=== PATIENT | female | born 1975 | race Caucasian/White ===

== ENCOUNTER 2020-11-25 04:22 | Outpatient (CLI) | payer OTHER, SELFPAY ==
[2020-11-25 13:02] LABS: Source Nasal/Nares
[2020-11-25 21:56] LABS: COVID-19 PCR Negative (Negative)
== END 2020-11-25 04:23 | disposition home or self-care (01) ==
LOC: LBO 04:22
PROVIDERS: Visit Provider Student in an Organized Health Care Education/Training Program
DX: Z20.822 Contact with and (suspected) exposure to COVID-19 (principal); Z01.818 Encounter for other preprocedural examination
CPT/HCPCS: 87635

== ENCOUNTER 2020-11-27 10:48 | Day surgery (SDC) | payer OTHER, SELFPAY ==
[2020-11-27] VITALS (9 sets, daily range): BP systolic 104–136; BP diastolic 55–86; PULSE 62–88; RESP 14–19; TEMP 36.1–36.7; O2SAT 96–99; BMI 38.9
--- NOTE | 2020-11-27 10:45 | DI.RAD_ITS ---
Exam(s) XR ANKLE RT 2V EXAM: XR ANKLE RT 2V CLINICAL HISTORY: RIGHT DISTAL FIBULAR FRACTURE. TECHNIQUE: 2D digital imaging was performed. COMPARISON: No exams were available for comparison FINDINGS: Fluoroscopy provided during orthopedic procedure. See appears submitted images reveal placement of a lateral fixation plate across fibular fracture site secured by a total of 6 screws. Satisfactory po sition alignment. Total fluoroscopy time 25 seconds. Cumulative dose 0.58mGy IMPRESSION: DATA REPOSITORY: RADIATION DOSE DELIVERED:
[2020-11-27] MEDS: Lactated Ringers 1,000 ML 80 ML IV (11:25)
[2020-11-27] MEDS: Acetaminophen 500 MG TAB 1000 MG PO (11:48)
[2020-11-27] MEDS: Celecoxib 200 MG CAP 400 MG PO (11:48)
[2020-11-27] MEDS: Gabapentin 300 MG CAP PO (11:49)
--- NOTE | 2020-11-27 12:12 | W.ANESPRE ---
General Info Date of Service Date Performed: 11/27/20 Height: 5 ft 7 in Weight: 113 kg Body Mass Index (BMI): 38.9 Surgical Procedure: Operation Date: 11/27/20 12:40 Proposed Procedures Side Surgeon p ORIF R Fibula, possible syndesmosis repair, possible deltoid ligament repair Right Derrek Burns MD Meds Allergies and Home Medications Allergies Allergy/AdvReac Type Severity Reaction Status Date / Time Sulfa (Sulfonamide Allergy rash head Verified 11/27/20 11:26 Antibiotics) to toe levofloxacin [From Levaquin] AdvReac vomiting Verified 11/27/20 11:26 Home Medication Medication Instructions Recorded adalimumab 40 mg/0.8 mL 40 mg SUBCUT ONCE 10/20/20 subcutaneous pen kit apixaban 2.5 mg tablet 2.5 mg PO BID 10/20/20 celecoxib 200 mg capsule 200 mg PO DAILY #30 cap 10/20/20 cholecalciferol (vitamin D3) 125 125 mcg PO DAILY 10/20/20 mcg (5,000 unit) capsule levothyroxine 50 mcg capsule 50 mcg PO DAILY 10/20/20 hydrocodone-acetaminophen 1 tab PO Q4H PRN 11/26/20 Knee Scooter #1 ea 11/27/20 cephalexin 500 mg PO Q6H PRN PRN 11/27/20 Current Visit Medications: Current Medications Generic Name Dose Route Start Last Admin Trade Name Freq PRN Reason Stop Dose Admin Acetaminophen 1,000 mg 11/27/20 06:00 11/27/20 11:48 Acetaminophen 500 Mg Tab PO 11/27/20 16:00 1,000 mg PREOP DOLORES Administration Celecoxib 400 mg 11/27/20 06:00 11/27/20 11:48 Celecoxib 200 Mg Cap PO 11/27/20 16:00 400 mg PREOP DOLORES Administration Ephedrine Sulfate 0 mg 11/27/20 10:27 Ephedrine 50 Mg/Ml Vial IVP DIRECTED PRN Fentanyl 0 mcg 11/27/20 10:27 Fentanyl 100 Mcg/2 Ml Vial IVP DIRECTED PRN Gabapentin 300 mg 11/27/20 06:00 11/27/20 11:49 Gabapentin 300 Mg Cap PO 11/27/20 16:00 300 mg PREOP DOLORES Administration Hydromorphone HCl 0 mg 11/27/20 10:27 Hydromorphone 2 Mg/Ml Vial IVP DIRECTED PRN Ringer's Solution 1,000 mls @ 80 mls/hr 11/27/20 06:00 IV 12/26/20 23:59 INFUSION DOLORES Cefazolin Sodium 2,000 mg/ 100 mls @ 200 mls/hr 11/27/20 06:00 Sodium Chloride IVPB 11/27/20 16:00 PREOP DOLORES IV Miscellaneous Supplies 1 each 11/27/20 06:00 Iv Access IV 12/26/20 23:59 DIRECTED DOLORES Naloxone HCl 0 mg 11/27/20 10:27 Naloxone 0.4 Mg/Ml Vial IVP PRN PRN Sodium Chloride 0 ml 11/27/20 06:00 Normal Saline Flush 10 Ml Syr IV 12/26/20 23:59 PRN PRN Sodium Chloride 0 ml 11/27/20 06:00 Normal Saline 10 Ml Vial IJ 12/26/20 23:59 DIRECTED PRN Sterile Water 0 ml 11/27/20 06:00 Water,Injection,Sterile 10 Ml Vial IJ 12/26/20 23:59 DIRECTED PRN PFSH Active Problems Active Problems: Problem Status Onset Code Osteoarthritis of left knee M17.12 Osteoarthritis of right knee M17.11 Trimalleolar fracture of right ankle S82.851A Medical History Medical History (Updated 11/27/20 @ 11:42 by Julia Mohan) Arthritis History of blood transfusion 2018-pt stated she was on a blood thinner from previous DVT and hemhorraged and recieved two transfusions History of postoperative nausea and vomiting Hx of deep venous thrombosis in 2018 2x 6 months apart Hx of pilonidal cyst Hx of psoriasis Hypothyroidism Open wound pt. see's vascular in regards to a wound that has been open from a punch biopsy for 2 years. Ulcerative colitis Surgical History Surgical History Hx of section Hx of hysterectomy Tobacco Smoking/Tobacco Use Status: Former Tobacco Use Alcohol Alcohol Intake: current Alcohol intake frequency: a few times a week Alcohol type: wine Substance Use Substance use: Never Substance use type: does not use Vital Signs and Lab Results Vital Signs Most Recent Vital Signs in EMR: Most Recent Vital Signs Temp Pulse Resp BP Pulse Ox 36.7 C 88 14 128/86 98 11/27/20 11:33 11/27/20 11:33 11/27/20 11:33 11/27/20 11:33 11/27/20 11:33 Lab Results Blood Type / Crossmatch: No Data to Display Complete Blood Count: No Data to Display Complete Metabolic Panel: No Data to Display Liver Function Panel: No Data to Display Coagulation Panel: No Data to Display Cardiac Panel: No Data to Display Arterial Blood Gas: No Data to Display Venous Blood Gas: No Data to Display Pancreas Panel: No Data to Display Thyroid Panel: No Data to Display Infectious Disease: Coronavirus (COVID-19)(PCR) Negative (Negative) 11/25/20 11:12 11/25/20 Coronavirus 2019 Source Nasal/Nares 11/25/20 11:12 11/25/20 Blood Cultures: No Data to Display Toxicology Panel: No Data to Display Panel: No Data to Display Anesthesia Assessment and Plan Anesthesia History Personal History: PONV Family History: No Family History of Anesthesia Complications Exercise Tolerance Exercise Tolerance: Metabolic Equivalents>4 Pertinent Negatives Pertinent Negatives: No Symptoms of GERD, No Major Cardiovascular Symptoms or Complaints and No Major Pulmonary Symptoms or Complaints Cardiac & Pulmonary Exam Cardiac Exam: Heart Murmur Present (Longstanding) Pulmonary Exam: Clear Bilateral Breath Sounds Airway Exam Known Difficult Airway: No Mallampati Class: 2 Mouth Opening: Normal (> 3cm) Thyromental Distance: Greater than 3 cm Neck Range of Motion: Full ROM Neck Circumference: Normal Teeth Condition: Normal Dentition ASA Classification ASA Score: ASA 2 Emergency Case?: No NPO Status NPO Status: NPO Clears >2 hours, Solids >8 hours Status Status: Negative HCG Anesthesia Plan Resuscitation Status: Full Code Anesthesia Technique: General Anesthesia Airway Planned: Endotracheal Tube Monitors Used: Standard Monitors
--- NOTE | 2020-11-27 12:27 | W.PM.DSUDISC ---
Discharge Plan Disposition Patient Disposition: HOME Condition: Improving Discharge Details Reason For Visit: Right Ankle Fracture Attending Provider: Derrek Burns Primary Care Provider: Carlotta Lamb Home Meds and New Rx's Prescriptions: New acetaminophen 500 mg tablet 1,000 mg PO Q8H PRN (Reason: pain) Qty: 90 RF: 3 docusate sodium [Colace] 100 mg capsule 100 mg PO BID PRNQty: 10 RF: 0 pantoprazole 40 mg tablet,delayed release (DR/EC) 40 mg PO DAILY Qty: 30 RF: 0 oxycodone 5 mg tablet 5 mg PO Q4H Qty: 18 RF: 0 Continued levothyroxine 50 mcg capsule 50 mcg PO DAILY RF: 0 Humira Pen 40 mg/0.8 mL pen injector kit 40 mg subcut ONCE RF: 0 cholecalciferol (vitamin D3) 125 mcg (5,000 unit) capsule 125 mcg PO DAILY RF: 0 Eliquis 2.5 mg tablet 2.5 mg PO BID RF: 0 (DME) Knee Scooter See Rx Instructions .Route .MEDSUPPLY Qty: 1 RF: 0 cephalexin 500 mg capsule 500 mg PO Q6H PRN PRNRF: 0 Changed celecoxib [Celebrex] 200 mg capsule 200 mg PO BID PRN PRNQty: 30 RF: 3 Discontinued hydrocodone-acetaminophen 5-325 mg tablet 1 tab PO Q4H PRNRF: 0 Discharge Instructions Additional Instructions: Ankle ORIF Discharge Instructions Activity: You are NON WEIGHT BEARING. You should keep the leg elevated as much as possible. You may wiggle your toes and move your hip and knee. Dressings: You should keep your splint clean and dry. Do NOT get wet or dirty. If you have issues with your splint, please call the office at [phone] or the hospital after hours. Medications: - You should take Tylenol and Celebrex around the clock for baseline pain. - You have been prescribed a stronger narcotic, Oxycodone, for breakthrough pain. - You should resume Eliquis for blood clot prevention. - You should wait approximately 2 weeks to restart Humira. This will be determined at your next follow-up appointment. Follow-up: 2 weeks Equipment/Supplies: Non-Weight Bearing Crutches Activity:: Elevate Remove Dressings/Wound Care:: Do Not Remove Shower/Bathe:: Cover Diet:: As Tolerated Discharge Orders Discharge Orders: Discharge Order (Routine); Ordered 11/27/20 Ordered By: Derrek Burns
[2020-11-27] MEDS: ceFAZolin 2,000 MG in Normal Saline 100 ML 200 MG IVPB (12:42)
[2020-11-27] MEDS: Bupivacaine 0.25% Pres-Free 30 ML VIAL (13:21)
[2020-11-27] MEDS: Bupivacaine LIPOSOME/PF 133 MG/10 ML VIAL IJ (13:22)
[2020-11-27] MEDS: Droperidol 5 MG/2 ML VIAL (14:33)
[2020-11-27] MEDS: fentaNYL 100 MCG/2 ML VIAL IVP (14:42)
[2020-11-27] MEDS: Normal Saline Flush 10 ML SYR IV (14:53)
[2020-11-27] MEDS: oxyCODONE 5 MG TAB PO (15:34)
--- NOTE | 2020-11-27 15:50 | ROE_ITS ---
Date of service: 11/27/20 Time of Service: 14:12 Operative Note Operative Note DATE OF PROCEDURE: 10/20/19 PRE-OP DIAGNOSIS: Right ankle Fracture (posterior and lateral malleolus) with deltoid ligament disruption and posterior leg laceration POST-OP DIAGNOSIS: same PROCEDURE: Open Reduction and Internal Fixation of distal fibula of ankle, reduction and repair of deltoid ligament, laceration pair from posterior, distal leg (3 cm) SURGEON: Derrek Burns WIRE BORDER ASSEMBLER: Ximena Mack ANESTHESIA TYPE: General LMA/ETT Refer to Anesthesia Record ESTIMATED BLOOD LOSS: 20 PATHOLOGY: none sent TOURNIQUET TIME: 0 COMPLICATIONS: None Patient was transported to: PACU Patient's condition: stable Indications: Aurora who presented to the Emergency Department at [facility] after being hit by the bucket of a tractor, suffering lacerations to the distal aspect of the right leg and ankle fracture subluxation primarily involving the deltoid ligament and the distal fibula. X-rays confirmed the diagnosis I was called from [facility] to assist in her care. Given the lacerations did not communicate with the fracture, she was treated initially in a splint with strict elevation to allow the swelling to decrease. Over the phone initially, I reviewed the possible treatment options and given the fracture, I recommended operative fixation. She presents today for operative fixation of the right ankle fracture. I discussed the technical details of the surgery. I reviewed the risks such as bleeding, infection, pain, stiffness, malunion, nonunion, hardware prominence, hardware faiilure, malrotation, damage to nerves and vessels, blood clot. Despite these risks, she agreed to proceed. Findings: There was a punctate laceration seen proximal to the medial malleolus. This did communicate down towards the anterior aspect of the medial malleolus where there is a complete disruption of the deltoid ligament. The deltoid ligament was freed from inside the joint and later repaired to the medial malleolus with a 5.0 mm Fastin anchor. The Juarez C fibula fracture was directly reduced with excellent reduction and secured with a one third tubular plate. The posterior malleolar fragment was well aligned after complete reduction and involved approximately 15 to 20% of the joint surface. Therefore, it was not fixed. A 3 cm laceration over the posterior leg was cleaned and repaired. Procedure Description: Aurora was greeted in the preoperative area. Consent was previously reviewed and signed. Once in the operating room, anesthesia was administered. The patient was transferred to the fracture table in the supine position. She was positioned in the supine position with the operative side placed onto a bone foam ramp. All bony prominences were well padded. Arms were placed out to the side, padded, and secured. Prophylactic antibiotics, Cefazolin 2 grams, was given for prophylactic antibiotics. A timeout was performed for safe surgery. The right leg was prepped with Betadine. The leg was draped with a stockinette and extremity drape. There is a punctate wound seen over the medial aspect of the ankle just proximal to the malleolus. Gentle probing this wound seem to indicate that it did track down towards the anterior aspect of the malleolus where the deltoid ligament was absent. Given the displacement of the talus laterally and this wound I opened up the medial side of the ankle with a curvilinear incision through this punctate laceration. It was extended both proximally and distally to expose the medial malleolus. The deltoid ligament was avulsed off the anterior aspect of the main malleolus with portions of this ligament residing within the joint lateral to the medial malleolus. A section of the central portion of the superficial MCL was torn in its mid substance and more towards the attachment to the talus. From about the midpoint of the medial malleolus and posterior the deltoid ligament was still attached to the medial malleolus. This was thoroughly irrigated. The deltoid ligament was freed from entrapment and the joint was irrigated. Attention was then turned to the lateral malleolus, distal fibula. A longitudinal incision was made overlying the border of the fibula centered over the fracture site. This was taken down through skin only. Dissection was carried down bluntly to the fascia of the lateral leg. The fibula was protruding through the lateral compartment fascia. This was used to incise the lateral compartment fascia and expose the fibula. During this time attention was taken to identify the superficial peroneal nerve but it was not in the [id number] or we were working. Therefore, I proceeded with release of the fascia under direct visualization. A anna elevator was then utilized to elevate periosteum and soft tissue off of the ends of the fibula near the fracture. There was notable shortening and lateral displacement of the distal fibular fragment. Early clot and fibrous tissue was removed from the fracture site. Using direct manipulation I was able to reduce this fracture. It was quite challenging to reduce once reduce was stable and reapproximated the length of the fibula. This in position x-rays confirmed proper reduction and reduction of the joint surface. I then placed an eight hole one third tubular plate over this area. 3.5 mm nonlocking screws were placed, three above, and three below, the fracture site. The longer plate was utilized to bridge some comminution at the fracture site being a short oblique fracture and early room for potentially syndesmotic fixation if necessary. Once the sick screws are in place x-ray was once again confirmed to show anatomic reduction of the fibula. Turning attention back to the medial side of the ankle, a single 5.0 mm Mitek Fastin anchor was placed in the medial malleolus. This was placed slightly more anterior within the medial malleolus. I then used horizontal mattress sutures to reapproximate the deltoid ligament back to the medial malleolus. These were tied with excellent reapproximation of the deltoid to the medial malleolus. Remnant suture was also utilized to repair any intraligament tear. Once this was completed there is no visualization of the joint and the minimally this was fully covered with deltoid ligament. X-rays were then once again obtained. I stressed the ankle and there is no gapping of the medial clear space and no gapping of the distal tibiofibular space. The lateral view showed excellent placement of the plate and screws and the anatomic alignment of the posterior malleolus. Lastly, the laceration over the posterior aspect of the distal leg was addressed. This was irrigated and cleaned both sharply and with just irrigation. The edges were slightly engorged and unhealthy appearing from the direct pressure. However, the gap was about 5 to 6 mm and the Achilles fascia was underlying it. Therefore, given that the skin was mobile, I reapproximate the skin edges and closer proximity to each other. This was done with large grasping nylon simple sutures. All the surgical sites were then injected with a mixture of 30 cc of 0.25% bupivacaine and 10 cc of Exparel. The wounds were dressed with Xeroform, 4 x 4's, ABD, web roll. A short leg posterior splint was then applied. At the end of the case, all counts were correct. Aurora tolerated the procedure well without known complication and was taken to the PACU for recovery. She will remain nonweightbearing with a splint. Anticoagulation will resume tonight. She will follow-up in 2 weeks.
--- NOTE | 2020-11-27 15:56 | W.ANESPOSTOP ---
Postoperative Evaluation Date, Time and Location Date Performed: 11/27/20 Time Performed: 15:56 Patient Location: Day Surgery Unit Vital Signs Most Recent Imported Vital Signs: Most Recent Vital Signs Temp Pulse Resp BP Pulse Ox 36.1 C L 75 16 131/85 97 11/27/20 15:24 11/27/20 15:24 11/27/20 15:24 11/27/20 15:24 11/27/20 15:24 Pain Score Most Recent Pain Score: Most Recent Pain Score Pain Level 3 11/27/20 15:24 Assessment Mental Status: Awake (Alert & Oriented to Patient Baseline) Airway and Respiratory Function: Patent airway with normal (patient baseline) respiratory exam Cardiovascular Function: Hemodynamically Stable Hydration Status: Adequately Hydrated Nausea & Vomiting: No Nausea or Vomiting Pain: Pain is tolerable per patient Peripheral Nerve Block: Patient did not receive a nerve block
== END 2020-11-27 16:20 | disposition home or self-care (01) ==
PROVIDERS: PCP Nurse Practitioner Family; Visit Provider Student in an Organized Health Care Education/Training Program
PROC: (CPT 27814; principal; 2020-11-27 12:30)
DX: S82.841A Displaced bimalleolar fracture of right lower leg, initial encounter for closed fracture (principal); S93.421A Sprain of deltoid ligament of right ankle, initial encounter; S91.011A Laceration without foreign body, right ankle, initial encounter; W31.82XA Contact with other commercial machinery, initial encounter
CPT/HCPCS: 27814; 27695; 12002; C1713; 73600; J0690; J1100; J1790; J1885; J2250; J2405; J3010

== ENCOUNTER 2020-12-11 12:03 | Outpatient (CLI) | payer OTHER, SELFPAY ==
--- NOTE | 2020-12-11 11:45 | DI.RAD_ITS ---
Exam(s) XR ANKLE RT COMPLETE EXAM: XR ANKLE RT COMPLETE CLINICAL HISTORY: f/u ORIF R Ankle. TECHNIQUE: 2D digital imaging was performed. COMPARISON: XR ANKLE RT 2V from 11/27/2020 FINDINGS: Three views reveal lateral fixation plate across healing fibular fracture site. Fracture line is sti ll evident. There is no displacement at this level. There is no widening of the ankle mortise. Thor ar dome appears unremarkable. A fixation device is noted in the medial malleolus. On the lateral vi ew there appears to be a posterior malleolus fracture. IMPRESSION: DATA REPOSITORY: RADIATION DOSE DELIVERED:
== END 2020-12-11 12:04 | disposition home or self-care (01) ==
LOC: DIORS 12:03
PROVIDERS: PCP Nurse Practitioner Family; Referring Provider Nurse Practitioner Family; Visit Provider Student in an Organized Health Care Education/Training Program
DX: S82.851D Displaced trimalleolar fracture of right lower leg, subsequent encounter for closed fracture with routine healing (principal); X58.XXXD Exposure to other specified factors, subsequent encounter
CPT/HCPCS: 73610

== ENCOUNTER 2021-01-08 11:59 | Outpatient (CLI) | payer OTHER, SELFPAY ==
--- NOTE | 2021-01-08 10:30 | DI.RAD_ITS ---
Exam(s) XR ANKLE RT COMPLETE EXAM: XR ANKLE RT COMPLETE CLINICAL HISTORY: s/p ORIF R ankle. TECHNIQUE: 2D digital imaging was performed. Three images were obtained. COMPARISON: CR XR ANKLE RT COMPLETE from 12/11/2020 FINDINGS: BONES: There are stable post operative changes present. No new fracture or dislocation. The distal f ibular fracture line is still well visualized. JOINTS: The joint spaces are well maintained. No joint effusion is present. SOFT TISSUE: Normal. IMPRESSION: Stable postoperative changes. DATA REPOSITORY: RADIATION DOSE DELIVERED:
== END 2021-01-08 12:00 | disposition home or self-care (01) ==
LOC: DIORS 11:59
PROVIDERS: PCP Nurse Practitioner Family; Referring Provider Nurse Practitioner Family; Visit Provider Student in an Organized Health Care Education/Training Program
DX: S82.841D Displaced bimalleolar fracture of right lower leg, subsequent encounter for closed fracture with routine healing (principal)
CPT/HCPCS: 73610

== ENCOUNTER 2021-02-05 15:12 | Outpatient (CLI) | payer OTHER, SELFPAY ==
--- NOTE | 2021-02-05 11:15 | DI.RAD_ITS ---
Exam(s) XR ANKLE RT COMPLETE EXAM: XR ANKLE RT COMPLETE CLINICAL HISTORY: right ankle fracture. TECHNIQUE: 2D digital imaging was performed. COMPARISON: No exams were available for comparison FINDINGS: Again noted is the fixation plate across the fibular fracture site. Fracture line still visible but without significant displacement. A fixation device in the medial malleolus is also again noted, unc hanged. No obvious fracture line seen at this level. There is no widening of the mortise. Talar do me appears mildly osteopenic but without evidence of osteochondral defect nor degenerative subarticul ar cysts. There is no osseous tarsal coalition. No radiographic evidence of osteomyelitis. IMPRESSION: DATA REPOSITORY: RADIATION DOSE DELIVERED:
== END 2021-02-05 15:13 | disposition home or self-care (01) ==
LOC: DIORS 15:12
PROVIDERS: PCP Nurse Practitioner Family; Referring Provider Nurse Practitioner Family; Visit Provider Physician Assistant
DX: S82.841D Displaced bimalleolar fracture of right lower leg, subsequent encounter for closed fracture with routine healing (principal); X58.XXXD Exposure to other specified factors, subsequent encounter
CPT/HCPCS: 73610

== ENCOUNTER 2021-03-12 11:35 | Outpatient (CLI) | payer OTHER, SELFPAY ==
--- NOTE | 2021-03-12 10:45 | DI.RAD_ITS ---
Exam(s) XR ANKLE RT COMPLETE EXAM: XR ANKLE RT COMPLETE CLINICAL HISTORY: right ankle ORIF. TECHNIQUE: 2D digital imaging was performed. COMPARISON: CR XR ANKLE RT COMPLETE from 02/05/2021 FINDINGS: Again noted is hardware comprised of fixation plate across healing fracture in the lower 3rd of the f ibula and there has indeed been further healing at this level although the fracture lines are still s ubtly visible. No hardware loosening. No radiographic evidence of osteomyelitis. Also noted is a fixation device across the medial malleolus, appearing unchanged. No displacement. No widening of the mortise. Talar dome appears mildly osteopenic but without evidence of osteochondr al defect. IMPRESSION: Hardware as above. Further healing. DATA REPOSITORY: RADIATION DOSE DELIVERED:
== END 2021-03-12 11:36 | disposition home or self-care (01) ==
LOC: DIORS 11:35
PROVIDERS: PCP Nurse Practitioner Family; Referring Provider Nurse Practitioner Family; Visit Provider Physician Assistant
DX: S82.851D Displaced trimalleolar fracture of right lower leg, subsequent encounter for closed fracture with routine healing (principal)
CPT/HCPCS: 73610

== ENCOUNTER 2023-03-14 15:04 | Outpatient (CLI) | payer OTHER, SELFPAY ==
--- NOTE | 2023-03-14 13:59 | DI.RAD_ITS ---
Exam(s) XR KNEE LT 4V AP,LAT,TARYN,PAT EXAM: XR KNEE LT 4V AP,LAT,TARYN,PAT CLINICAL HISTORY: LEFT KNEE PAIN. TECHNIQUE: 2D digital imaging was performed. Three views. COMPARISON: No exams were available for comparison FINDINGS: BONES: No acute fracture is present. No bony destructive lesion is seen. JOINTS: Severe narrowing medial femoral tibial joint space, periarticular spurring and sclerosis. Mi ld valgus angulation. Spurring at the patellofemoral joint. Patellofemoral joint space is maintaine d. No joint effusion is seen. SOFT TISSUE: Normal. IMPRESSION: Advanced degenerative changes medial femoral tibial joint. DATA REPOSITORY: RADIATION DOSE DELIVERED:
--- NOTE | 2023-03-14 14:00 | DI.RAD_ITS ---
Exam(s) XR KNEE RT 4V AP,LAT,TARYN,PAT EXAM: XR KNEE RT 4V AP,LAT,TARYN,PAT CLINICAL HISTORY: R knee pain. TECHNIQUE: 2D digital imaging was performed. Three views. COMPARISON: MR MR KNEE LT WO CONTRAST from 08/20/2020 FINDINGS: BONES: No acute fracture is present. No bony destructive lesion is seen. JOINTS: Moderate to severe narrowing of the medial femoral tibial joint space and mild periarticular spurring. Mild spurring at the lateral femoral tibial joint. Spurring also present at the patellofe moral joint. No joint effusion is seen. SOFT TISSUE: Normal. IMPRESSION: Are severe degenerative changes of the medial femoral tibial joint. Mild degenerative changes of the patellofemoral joint. DATA REPOSITORY: RADIATION DOSE DELIVERED:
== END 2023-03-14 15:05 | disposition home or self-care (01) ==
LOC: DIORS 15:04
PROVIDERS: PCP Family Medicine; Visit Provider Student in an Organized Health Care Education/Training Program
DX: M17.0 Bilateral primary osteoarthritis of knee
CPT/HCPCS: 73564

== ENCOUNTER → 2023-10-27 00:08 | Outpatient (CLI) | payer OTHER, SELFPAY ==
--- NOTE | 2023-10-27 15:01 | DI.US_ITS ---
APPROVED REPORT EXAM: Stress Echocardiogram Stress Nurse: Oralia Goldman RN Ordering Provider: SHARMIN DENTON, Contact Number: [phone] HR: 76 bpm BP: 124/82 mmHg Rhythm: NSR ICD: R94.31 Abnormal electrocardiogram ; I10 Essential HTN; Z01.818 other Indications: Abnormal electrocardiogram, essential HTN, preprocedural examination Medical History Medical History: HTN, hypothyroidism, depression, DVT, intermittent asthma, obesity, ulcerative colit is Medications: Albuterol sulfate, celecoxib, citalopram, eliquis, hydrochlorothiazide, levothyroxine, n eoral, nifedipine, stelara Allergies: Sulfa, levaquin Cardiac Risk Factors: Family hx, HTN, asthma, former smoker, obesity Previous Cardiac Procedures: None Pretest Chest Pain Characteristics: None Exercise History: Sedentary Physical Disabilities: None Stress Test Details Test: Exercise stress testing was performed using a Remington protocol. Rest Stress HR Resting HR Supine: 76 bpm Max Heart Rate (APMHR): 174 bpm Resting HR Standin bpm Target HR (85% APMHR): 148 bpm Max HR Achieved: 156 bpm % of APMHR: 90 Recovery HR: 86 bpm HR response to stress: Normal HR response to stress BP Resting BP Supine: 124/82 mmHg Resting BP Standin/98 mmHg Max BP: 188/78 mmHg Recovery BP: 128/76 mmHg BP response to stress: Normal blood pressure response to stress. ECG Resting ECG: Sinus Rhythm Ectopy: None Stress ECG: Sinus Bradycardia ST Change: No significant ST segment changes noted Arrhythmia: None Recovery ECG: Sinus Rhythm Recovery ST Change: No significant ST segment changes noted Recovery Arrhythmia: None Clinical Reason for Termination: Target HR Achieved, POLK Stress Symptoms: Severe POLK, , General Fatigue Exercise duration: 06 min32 sec Highest Stage Reached: Stage 3: 3.4 mph at 14% grade. Exercise capacity: 7.88 METs Angina Score: None Medina Treadmill Score: 5.7 Rate Pressure Product: [id number] Stress ECG Conclusion 1. Resting electrocardiogram was normal 2. Patient exercised on the Remington protocol and completed a workload of 7.88 METS 3. Normal heart rate and blood pressure response to exercise. The patient achieved 90% of predicted heart rate for age 4. There was no electrocardiographic evidence of myocardial ischemia 5. There was no echocardiographic evidence of ischemia. The ejection fraction surjit from 60% at rest to greater than 75% at peak exercise with augmented contractility of all segments 6. There were no dysrhythmias Medina Treadmill Score is 5.7 which is Low risk. Echo Findings The Pre-Stress Echocardiogram showed normal left ventricular contractility with an estimated Ejection Fraction of about 60%. The Peak-Stress Echocardiogram showed normal left ventricular contractility with an estimated Ejectio n Fraction of about 75%. Conclusion Resting electrocardiogram was normal Patient exercised on the Remington protocol and completed a workload of 7.88 METS Normal heart rate and blood pressure response to exercise. The patient achieved 90% of predicted hea rt rate for age There was no electrocardiographic evidence of myocardial ischemia There was no echocardiographic evidence of ischemia. The ejection fraction surjit from 60% at rest to greater than 75% at peak exercise with augmented contractility of all segments There were no dysrhythmias Plain Medina Treadmill Score is 5.7 which is Low risk.
== END ==
PROVIDERS: PCP Family Medicine; Visit Provider Family Medicine
DX: R94.31 Abnormal electrocardiogram [ECG] [EKG] (principal); Z01.818 Encounter for other preprocedural examination
CPT/HCPCS: 93350; 93017

== ENCOUNTER 2023-12-01 14:59 | Outpatient (CLI) | payer OTHER, SELFPAY ==
[2023-12-01 15:18] LABS: MCH 29.5 pg (27.0-33.0); MCHC 33.3 % (32.0-36.0); MCV 89 fL (80-95); MPV 9.3 fL (8.0-11.0); Platelet Count 411 10^3/uL (130-400); RBC 3.73 10^6/uL (3.93-5.22); RDW 12.4 % (11.7-14.6); RDW-SD 40.3 fL; WBC 5.64 10^3/uL (4.4-10.8)
[2023-12-01 15:28] LABS: Anion Gap 9.7 mmol/L (3-11); BUN 27 mg/dL (7-18); CO2 24.3 mmol/L (21.0-32.0); CREATININE 0.8 mg/dL (0.55-1.02); Calcium 9.8 mg/dL (8.5-10.1); Chloride 104 mmol/L (98-107); Estimated GFR 91.97 (mL/min/1.73m2); Glucose 100 mg/dL (74-106); Sodium 138 mmol/L (136-145)
== END 2023-12-01 15:00 | disposition home or self-care (01) ==
LOC: LBO 15:00
PROVIDERS: PCP Family Medicine; Visit Provider Student in an Organized Health Care Education/Training Program
DX: M17.12 Unilateral primary osteoarthritis, left knee (principal); Z01.818 Encounter for other preprocedural examination
CPT/HCPCS: 36415; 80048; 85027

== ENCOUNTER 2023-12-01 15:23 | Outpatient (CLI) | payer OTHER, SELFPAY ==
--- NOTE | 2023-12-01 13:00 | DI.RAD_ITS ---
Exam(s) XR KNEE LT 1V XR STANDING ALIGNMENT EXAM: XR STANDING ALIGNMENT CLINICAL HISTORY: PRE OP. TECHNIQUE: 2D digital imaging was performed. Standing AP views were performed from the pelvis throu gh the ankles. COMPARISON: CR XR KNEE LT 1V from 12/01/2023 FINDINGS: BONES: No acute fracture is present. No bony destructive lesion is seen. Hardware in distal fibula a nd medial malleolus. Leg length discrepancy: No significant overall leg length discrepancy. JOINTS: Knees: Severe narrowing of the medial femoral tibial joint spaces bilaterally. Mild bilate ral varus angulation. The ankle joints are unremarkable. The hip joints are unremarkable. SOFT TISSUE: Lower leg edema, greater on the left. IMPRESSION: Advanced degenerative changes of the medial femoral tibial joints bilaterally. . No significant leg length discrepancy. DATA REPOSITORY: RADIATION DOSE DELIVERED:
== END 2023-12-01 15:24 | disposition home or self-care (01) ==
LOC: DIORS 15:24
PROVIDERS: PCP Family Medicine; Visit Provider Physician Assistant
DX: M17.0 Bilateral primary osteoarthritis of knee
CPT/HCPCS: 73560; 77073

== ENCOUNTER 2023-12-13 08:52 | Day surgery (SDC) | payer OTHER, SELFPAY ==
[2023-12-13] VITALS (22 sets, daily range): BP systolic 116–164; BP diastolic 68–94; PULSE 66–88; RESP 11–33; TEMP 36–36.6; O2SAT 93–100; BMI 37.4
--- NOTE | 2023-12-13 07:39 | W.PM.DS.N ---
Date of service: 12/13/23 Time of Service: 11:12 Discharge Plan Disposition Patient Disposition: Home Condition: Good Discharge Details Reason For Visit: Left knee DJD Attending Provider: Derrek Burns Primary Care Provider: Mike Patino Home Meds and New Rx's Prescriptions: New celecoxib [Celebrex] 200 mg capsule 200 mg PO BID PRNQty: 60 0RF Rx Instructions: Take one tablet twice daily for pain and inflammation acetaminophen 500 mg tablet 1,000 mg PO Q8H PRN Qty: 90 0RF Rx Instructions: Take two tablets up to every 8 hours as needed for pain pantoprazole 40 mg tablet,delayed release (DR/EC) 40 mg PO DAILY Qty: 14 0RF dexamethasone 4 mg tablet 4 mg PO DAILY Qty: 2 0RF Rx Instructions: Take one tablet once daily for two days docusate sodium [Colace] 100 mg capsule 100 mg PO BID Qty: 30 0RF gabapentin 300 mg capsule 300 mg PO QHS Qty: 14 0RF Rx Instructions: Take one tablet at bedtime Continued levothyroxine 50 mcg capsule 50 mcg PO DAILY cholecalciferol (vitamin D3) 125 mcg (5,000 unit) capsule 125 mcg PO DAILY Eliquis 2.5 mg tablet 2.5 mg PO BID cyclosporine 100 mg capsule 200 mg PO BID nifedipine 30 mg tablet extended release 30 mg PO HS hydrochlorothiazide 25 mg tablet 25 mg PO HS citalopram 10 mg tablet 10 mg PO DAILY (DME) Knee Scooter See Rx Instructions .Route .MEDSUPPLY Qty: 1 0RF Rx Instructions: As directed Discontinued acetaminophen 500 mg tablet 1,000 mg PO Q8H PRN (Reason: pain) Qty: 90 3RF No Action oxycodone 10 mg tablet 10 mg PO Q4H MDD 6 tabs PRN (Reason: pain) Qty: 20 0RF Discharge Instructions Additional Instructions: Total Knee Discharge Instructions Activity: The most important activity is to walk and to work on gentle motion (both flexion and extension). You should try to take short walks a few times a day. It is important that when resting you work on keeping the knee straight. Avoid putting a pillow behind the knee as this will encourage flexion. Work on range of motion exercises as provided by Physical Therapy. - Start outpatient physical therapy within 2 weeks. - You should wear the MARITZA hose on both legs for 2 weeks. You may remove these at night. You may also use any compression sock in place of the MARITZA hose. - Utilize [employer] to review exercises, see videos on exercises and obtain basic information pertaining to your surgery and your recovery. Dressing: Remove the Samuel wrap by 2 days after your surgery and put on the MARITZA stocking given to you from the hospital. Keep the surgical dressing (underneath the SAMUEL wrap) in place for at least one week. After the first week it may be removed and replaced with light gauze and tape or nothing. The wound and dressing may get wet after 3 days but avoid soaking the dressing or otherwise it will need to be changed. Many people prefer covering the dressing with cling wrap (saran wrap) to minimize it from getting soaked. If it gets wet, just pat dry. If it starts to peel off then it will need to be changed. Medications: - You should take Tylenol and anti-inflammatory Celebrex as your primary pain control medications. If the Celebrex is too expensive or not covered, please call the office for another alternative (Advil/Ibuprofen or Naproxen/Aleve) - You have been prescribed a stronger pain medication Oxycodone for breakthrough pain, take as needed as prescribed. - You have also been prescribed a stomach acid reduction agent Pantoprozole to help reduce stomach acid and reflux. - You have been prescribed Gabapentin to take at night for restlessness and nerve pain. - You will resume your baseline anticoagulation, Apixaban, tomorrow for DVT prevention. - You have also been prescribed Decadron to take to control post-operative nausea and pain. You will start this tomorrow. - If you have constipation you should take Colace (which has been prescribed) or Miralax (which is available [id number]). It takes most people 3-4 days to have a bowel movement. Follow-up: 2 weeks If you have any acute concerns or questions, please do not hesitate to contact the office at [phone]. You may contact Dr. Burns with any questions after hours through the hospital at [phone] or on his cell phone at [phone]. Stand Alone Forms: Anesthesia Discharge Inst., [place].Nerve Block Instructions, Jose Flower ([facility]) Referrals: Derrek Burns MD [ [facility] STAFF PHYSICIAN] - 12/26/23 11:00 am Equipment/Supplies: Walker Activity:: Activity as Tolerated Remove Dressings/Wound Care:: Do Not Remove Shower/Bathe:: Cover Diet:: As Tolerated Discharge Orders Discharge Orders: Discharge Order (Routine); Ordered 12/13/23 Ordered By: Skylar Bhatti Discharge Data Discharge Date/Time-TO BE ENTERED AT DEPARTURE: 12/13/23 16:05 DS: Summary Time Spent with Patient providing and/or coordinating discharge services: Less than 30 minutes Status at Discharge Functional status at discharge: uses cane/walker Overall status at discharge: patient is progressing back to baseline Mental Status: mental status grossly normal Speech and Movement: speech and movement normal Mood: congruent mood Affect: normal affect Quality:SDOH Health Related Social Needs: No Data to Display Exam Psych Mental Status: mental status grossly normal Speech and Movement: speech and movement normal Mood: congruent mood Affect: normal affect PFSH All Active Problems (Updated 12/14/23 @ 09:30 by Bri Penny RN) History of total left knee replacement (Acute 12/13/23) Osteoarthritis of right knee (Acute) Medical History (Updated 12/14/23 @ 09:30 by Bri Penny RN) History of postoperative nausea and vomiting History of blood transfusion 2018-pt stated she was on a blood thinner from previous DVT and hemhorraged and recieved two transfusions Hx of psoriasis Open wound pt. see's vascular in regards to a wound that has been open from a punch biopsy for 2 years. Arthritis Hx of pilonidal cyst Ulcerative colitis Hx of deep venous thrombosis in 2018 2x 6 months apart Hypothyroidism Surgical History (Updated 12/14/23 @ 09:30 by Bri Penny RN) Trimalleolar fracture of right ankle (11/23/20) S/P ORIF: 11/27/2020 Hx of section Hx of hysterectomy Social History Smoking/Tobacco Use Status: Former Tobacco Use Quit Date: 04/04/10 Smoking risk assessment performed?: Yes Alcohol Intake: current Alcohol Intake frequency: a few times a week Alcohol type: wine Drug use: Never Substance use type: does not use Housing: house Do you feel safe at home: Yes Do you feel safe in your relationship?: Yes Time Spent with Patient Time Spent with Patient: <45 minutes Time was spent: preparing to see the patient(eg.review tests), obtaining and/or reviewing separately otained hiistory, ordering medications,tests, procedures and counseling the patient
--- NOTE | 2023-12-13 09:18 | W.ANESPRE ---
General Info Date of Service Date Performed: 12/13/23 Height: 5 ft 7 in Weight: 108.4 kg Body Mass Index (BMI): 37.4 Surgical Procedure: Operation Date: 12/13/23 11:10 Proposed Procedure Side Surgeon p Knee Total Arthroplasty Left Derrek Burns MD Meds Allergies and Home Medications Allergies Allergy/AdvReac Type Severity Reaction Status Date / Time Sulfa (Sulfonamide Allergy rash head Verified 12/13/23 09:08 Antibiotics) to toe levofloxacin (From Levaquin) AdvReac vomiting Verified 12/13/23 09:08 Home Medication ?Medication ?Instructions ?Recorded apixaban 2.5 mg tablet (Eliquis) 2.5 mg PO BID 10/20/20 cholecalciferol (vitamin D3) 125 125 mcg PO DAILY 10/20/20 mcg (5,000 unit) capsule levothyroxine 50 mcg capsule 50 mcg PO DAILY 10/20/20 Knee Scooter #1 ea 11/27/20 cyclosporine 100 mg capsule 200 mg PO BID 10/10/23 nifedipine 30 mg tablet,extended 30 mg PO HS 10/10/23 release citalopram 10 mg tablet 10 mg PO DAILY 12/01/23 hydrochlorothiazide 25 mg tablet 25 mg PO HS 12/01/23 acetaminophen 500 mg tablet 1,000 mg (2 x 500 mg) PO Q8H PRN 12/13/23 pain #90 tabs celecoxib 200 mg capsule (Celebrex) 200 mg PO BID PRN #60 caps 12/13/23 dexamethasone 4 mg tablet 4 mg PO DAILY #2 tabs 12/13/23 docusate sodium 100 mg capsule 100 mg PO BID #30 caps 12/13/23 (Colace) gabapentin 300 mg capsule 300 mg PO QHS #14 caps 12/13/23 oxycodone 5 mg tablet 5 mg PO Q4H PRN #18 tabs 12/13/23 pantoprazole 40 mg tablet,delayed 40 mg PO DAILY #14 tabs 12/13/23 release Current Visit Medications: Current Medications Generic Name Dose Route Start Last Admin Trade Name Freq PRN Reason Stop Dose Admin Acetaminophen 1,000 mg 12/13/23 06:00 Acetaminophen 500 Mg Tab PO 12/13/23 23:59 PREOP DOLORES Celecoxib 200 mg 12/13/23 06:00 Celecoxib 200 Mg Cap PO 12/13/23 23:59 PREOP DOLORES Gabapentin 300 mg 12/13/23 06:00 Gabapentin 300 Mg Cap PO 12/13/23 23:59 PREOP DOLORES Hydromorphone HCl 0.5 mg 12/13/23 07:38 Hydromorphone 2 Mg/Ml Syr IVP 01/12/24 07:37 Q2H PRN PRN Ringer's Solution 1,000 mls @ 80 mls/hr 12/13/23 06:00 IV 12/13/23 23:59 INFUSION DOLORES Cefazolin Sodium/Dextrose 2 gm in 50 mls @ 100 mls/hr 12/13/23 06:00 Ancef Duplex IVPB 12/13/23 23:59 PREOP DOLORES Tranexamic Acid/Sodium Chloride 1,000 mg in 100 mls @ 600 mls/hr 12/13/23 06:00 IVPB 12/13/23 23:59 PREOP DOLORES Cefazolin Sodium/Dextrose 1 gm in 50 mls @ 100 mls/hr 12/13/23 08:00 Ancef Duplex IVPB 12/14/23 00:29 Q8H DOLORES IV Miscellaneous Supplies 1 each 12/13/23 06:00 Iv Access IV 12/13/23 23:59 DIRECTED DOLORES Oxycodone HCl 0 mg 12/13/23 07:38 Oxycodone 5 Mg Tab PO 01/12/24 07:37 Q3H PRN PRN Pain Sodium Chloride 0 ml 12/13/23 06:00 Normal Saline Flush 10 Ml Syr IV 12/13/23 23:59 PRN PRN Sodium Chloride 0 ml 12/13/23 06:00 Normal Saline 10 Ml Vial IJ 12/13/23 23:59 DIRECTED PRN Sterile Water 0 ml 12/13/23 06:00 Water,Injection,Sterile 10 Ml Vial IJ 12/13/23 23:59 DIRECTED PRN PFSH Active Problems Active Problems: Problem Status Onset Code Osteoarthritis of left knee Acute M17.12 Osteoarthritis of right knee Acute M17.11 Medical History Medical History History of postoperative nausea and vomiting History of blood transfusion 2018-pt stated she was on a blood thinner from previous DVT and hemhorraged and recieved two transfusions Hx of psoriasis Open wound pt. see's vascular in regards to a wound that has been open from a punch biopsy for 2 years. Arthritis Hx of pilonidal cyst Ulcerative colitis Hx of deep venous thrombosis in 2018 2x 6 months apart Hypothyroidism Surgical History Surgical History Trimalleolar fracture of right ankle (11/23/20) S/P ORIF: 11/27/2020 Hx of section Hx of hysterectomy Tobacco Smoking/Tobacco Use Status: Former Tobacco Use Alcohol Alcohol Intake: current Alcohol intake frequency: a few times a week Alcohol type: wine Substance Use Substance use: Never Substance use type: does not use Vital Signs and Lab Results Vital Signs Most Recent Vital Signs in EMR: Most Recent Vital Signs Temp Pulse Resp BP Pulse Ox 36 C L 74 16 164/93 H 100 12/13/23 08:57 12/13/23 08:57 12/13/23 08:57 12/13/23 08:57 12/13/23 08:57 Lab Results Blood Type / Crossmatch: No Data to Display Complete Blood Count: White Blood Count 5.64 10^3/uL (4.4-10.8) 12/01/23 14:15 Red Blood Count 3.73 10^6/uL (3.93-5.22) L 12/01/23 14:15 Hemoglobin 11.0 g/dL (11.2-15.7) L 12/01/23 14:15 Hematocrit 33.0 % (36.0-46.0) L 12/01/23 14:15 Platelet Count 411 10^3/uL (130-400) H 12/01/23 14:15 Complete Metabolic Panel: Sodium 138 mmol/L (136-145) 12/01/23 14:15 Potassium 4.0 mmol/L (3.5-5.1) 12/01/23 14:15 Chloride 104 mmol/L (98-107) 12/01/23 14:15 Carbon Dioxide 24.3 mmol/L (21.0-32.0) 12/01/23 14:15 BUN 27 mg/dL (7-18) H 12/01/23 14:15 Creatinine 0.8 mg/dL (0.55-1.02) 12/01/23 14:15 Est GFR (CKD-EPI 2020) 91.97 (mL/min/1.73m2) 12/01/23 14:15 Calcium 9.8 mg/dL (8.5-10.1) 12/01/23 14:15 Glucose 100 mg/dL (74-106) 12/01/23 14:15 Liver Function Panel: No Data to Display Coagulation Panel: No Data to Display Cardiac Panel: No Data to Display Arterial Blood Gas: No Data to Display Venous Blood Gas: No Data to Display Pancreas Panel: No Data to Display Thyroid Panel: No Data to Display Infectious Disease: No Data to Display Blood Cultures: No Data to Display Toxicology Panel: No Data to Display Panel: No Data to Display Imaging and Studies Imaging and Studies Study information below may be from another EMR and interpreted by another provider. Please see original notes in EMR for more complete details. Stress Test Summary: Conclusion Resting electrocardiogram was normal Patient exercised on the Remington protocol and completed a workload of 7.88 METS Normal heart rate and blood pressure response to exercise. The patient achieved 90% of predicted heart rate for age There was no electrocardiographic evidence of myocardial ischemia There was no echocardiographic evidence of ischemia. The ejection fraction surjit from 60% at rest to greater than 75% at peak exercise with augmented contractility of all segments There were no dysrhythmias Plain Medina Treadmill Score is 5.7 which is Low risk. Anesthesia Assessment and Plan Anesthesia History Personal History: PONV Family History: No Family History of Anesthesia Complications Exercise Tolerance Exercise Tolerance: Metabolic Equivalents>4 Pertinent Negatives Pertinent Negatives: No Symptoms of GERD, No Major Cardiovascular Symptoms or Complaints, No Major Pulmonary Symptoms or Complaints and No History of CVA/TIA Cardiac & Pulmonary Exam Cardiac Exam: Heart Murmur Present Pulmonary Exam: Clear Bilateral Breath Sounds Implantable Cardiac Device Does patient have a Pacemaker or an ICD?: No Airway Exam Known Difficult Airway: No Mallampati Class: 2 Mouth Opening: Normal (> 3cm) Thyromental Distance: Greater than 3 cm Neck Range of Motion: Full ROM Neck Circumference: Normal Teeth Condition: Normal Dentition ASA Classification ASA Score: ASA 2 Emergency Case?: No NPO Status NPO Status: NPO Clears >2 hours, Solids >8 hours Status Status: History of Hysterectomy Anesthesia Plan Resuscitation Status: Full Code Anesthesia Technique: General Anesthesia Airway Planned: Natural Airway Pain Management: Surgeon and patient request nerve block Monitors Used: Standard Monitors
[2023-12-13] MEDS: Gabapentin 300 MG CAP PO (09:23)
[2023-12-13] MEDS: Celecoxib 200 MG CAP PO (09:23)
[2023-12-13] MEDS: Acetaminophen 500 MG TAB 1000 MG PO (09:24)
[2023-12-13] MEDS: Lactated Ringers 1,000 ML 80 ML IV (09:56)
[2023-12-13] MEDS: ceFAZolin 2 GM/50 ML BAG IVPB (10:42)
[2023-12-13] MEDS: TRANEXAMIC ACID/SOD. CHL. 1,000 MG/100 ML BAG 600 MG IVPB (11:02)
--- NOTE | 2023-12-13 11:28 | W.ANESNERVE ---
Nerve Block Single Injection Procedure Date and Time Date Performed: 12/13/23 Procedure Start: 10:04 Location Where Procedure Performed Procedure Location: Day Surgery Unit Reason Performed: Postoperative Analgesia Requesting Provider: Derrek Burns Timeout Performed Timeout Performed: Yes Monitoring Used ECG, Blood Pressure and SpO2 Sterility Sterility: Hand Hygiene, Surgical Cap, Surgical Mask, Sterile Gloves and Chlorhexidine Sedation Given During Procedure Sedation Given (Indicate Dose Given): No Sedation given Patient Mental Status Patient Mental Status: Awake Nerve Block 1st Nerve Block: Laterality: Left Block Type: Adductor Canal Ultrasound Image Saved?: Yes Needle / Catheter Used: 120mm SonoPlex II Local Anesthetic Bolus (Indicate Dose Given): Lidocaine used for local infiltration of skin, Injected in 3-5ml increments after negative blood aspiration, Blood noted on aspiration (blood aspirated on third of three injections, needle removed, line cleared, site acquired using US with negative aspiration, block completed without complication) and Bupivacaine 0.25% Dose:: 15ml Additives (Indicate Dose Given): None Ultrasound: Sterile probe cover and gel used Nerve Stimulator: Not Used Paresthesia: None Procedure Tolerated: No Complications and Patient tolerated well Procedure Outcome: Successful Performed By: Suleman Berry Supervised By: Adelita Larsen
--- NOTE | 2023-12-13 12:11 | W.PM.OP ---
Date of service: 12/13/23 Time of Service: 10:45 Operative Note Operative Note DATE OF PROCEDURE: 12/13/23 PRE-OP DIAGNOSIS: Left Knee Osteoarthritis POST-OP DIAGNOSIS: same PROCEDURE: Left Total Knee Replacement SURGEON: Derrek Burns 911 EMERGENCY DISPATCHER: Skylar Bhatti ANESTHESIA TYPE: Spinal Refer to Anesthesia Record ESTIMATED BLOOD LOSS: 100 PATHOLOGY: none sent TOURNIQUET TIME: 0 COMPLICATIONS: None Patient was transported to: PACU Patient's condition: stable Implants: 1. Depuy Attune Cementless Cruciate Retaining Femoral Component, Size 5 2. Depuy Attune Cementless Fixed Bearing Tibial Component, Size 4 3. Depuy Attune 5x6 CR/FB Poly 4. Depuy Attune Patellar Component, Size 35 Indications: I have seen Aurora in clinic for symptoms of knee arthritis, confirmed with radiographic findings. She has exhausted nonoperative methods and was having significant limitations in daily function and desired better function and less pain. I discussed the technical details of a knee replacement. I explained the risks of the procedure to include, but not limited to, bleeding, infection, pain, stiffness, fracture, damage to nerves and vessels, damage to muscles and tendons, loosening, need for repeat procedure, blood clot and cardiopulmonary demise. Despite these risks, Aurora elected to proceed. Findings: There was significant signs of arthritis, worse medially, throughout the knee along with notable synovitis Procedure Description: Aurora was greeted in the preoperative holding area where the correct side was identified and marked. The consent was reviewed with the patient and signed. The history and physical was updated. All questions were answered. Preoperative medications were administered: Acetaminophen 1000mg, Celebrex 400mg, and Gabapentin 300mg. An adductor canal block was then administered by the anesthesia team in the PACU. Aurora was taken back to the operating room. A spinal anesthestic was then administered. The patient was placed into the supine position on the operating room table. A nonsterile tourniquet was placed high onto the leg but only used for cementing. Posts were placed for positioning during the procedure. All bony prominences were well padded. Prophylactic antibiotics in the form of Cefazolin were administered. 1g of Tranxemic Acid was given intravenously within 30 minutes of incision. The left leg was then prepped with Chloraprep. Her chronic wound about the left leg was allowed to dry from the ChloraPrep and covered with a Mepilex over dressing. The remainder of the leg was then draped in a standard fashion with impervious stockinette. A second prep with Chloraprep was performed prior to application of Iodine impregnated skin protection. A timeout to confirm correct identity, side and site, procedure, allergies, anesthesia, and medical concerns was performed. With the knee in some flexion, a midline incision was made overlying the knee. Full thickness skin flaps were raised once the extensor mechanism was encountered. These were raised medially and laterally. Any bleeding was controlled with electrocautery. Once the extensor mechanism was fully exposed, a medial parapatellar arthrotomy was performed in a flexed position. All bleeding from the arthrotomy and the geniculate arteries was coagulated. A medial subperiosteal peel was performed with electrocautery to the midcoronal plane. The fat pad was removed while keeping the patellar tendon protected. The anterior distal femur synovium was removed for later visualization. The ACL and PCL were resected and the anterior horn of the lateral meniscus was transected. The knee was then flexed with the patella everted. Large osteophytes from the tibia were removed. Using a step drill, and based on preoperative templating, the femoral canal was entered. This was done with a step drill without any difficulty. The intramedullary distal femoral cut guide was inserted, set to a 5 degree valgus cut and 9mm cut thickness. The distal femoral cut guide was then held in position and pinned. With the soft tissues protected, the distal cut was performed. This was passed over a few times to ensure a planar cut. I then turned attention to the tibia. The extramedullary guide was placed onto the leg. The distal aspect was slid medial to adjust for position of center of ankle and stay in line with shaft of the tibia. Approximately 3-5 degrees of posterior slope was kept in the proximal cutting guide. The center of the guide was aligned with the PCL. The stylus was used to assess cut thickness. The medial side, most involved side, was set for a 4mm cut. This was then held in position and pinned into place with 2 additional pins and a cross pin for stability. The medial and lateral collateral ligaments were protected and the cut was performed. With this completed, it was assessed and noted to be of appropriate dimensions. The guide was removed. A spacer block was inserted and the knee was brought into extension. The 6mm spacer block provided full extension, without hyperextension and with stability of both the medial and lateral collateral ligaments was assessed. The pins from the femur and the tibia were then removed. The distal femur was then sized. The anterior stylus was placed onto the lateral ridge of the anterior femur. This indicated a size 5 femur. The external rotation of the guide was adjusted to 3 degrees to match the epicondylar axis, perpendicular to [place]?s line. The 4-in-1 cutting guide was the placed. The posterior medial femur cut was evaluated and appeared of good thickness. The spacer block was inserted underneath the cutting guide and stability was confirmed in 90 degrees of flexion. An ryan wing was used to confirm appropriate position of the anterior cut to avoid notching. This cutting guide was ensured to be flush on the cut surface and then pinned into place with headed pins. While protecting the soft tissues, quad tendon, and collateral ligaments, the anterior and posterior cuts were performed with a saw. The central two pins were removed and the posterior and anterior chamfers were cut next. The notch-cutting guide was placed. This was pinned to lateralize the femoral component as much as possible while keeping it flush on the cut surface. This was then pinned into position. A reciprocating saw was used to make the notch cut. A rasp smoothed the cut surfaces. The medial and lateral menisci were removed. A trial femoral component was then inserted, impacted down to the cut surfaces, and the lug holes were drilled. A provisional trial tibial component was placed and the knee was brought through range of motion. There was noted to be excellent extension and flexion. There was no significant instability. The patella was tracking without thumbs. A size 6mm polyethylene component provided the best range of motion and stability with less than 2mm gapping with medial and lateral stress and full extension without significant hyperextension. The tibial cut surface was fully exposed. The tibia was then sized as a 4. The tibia had been previously marked during trialing to correspond to the center of the tibial component to help with rotation. The trial was aligned to this tatyana, approximately rotated to the medial 1/3rd of the tibial tubercle. The trial was pinned into place. The tibia was prepared with a reamer and a keel punch and lug holes. The knee was then brought into extension and the patella was measured as 24mm. Using the patellar clamp and cut guide, this was resected to a flat surface with at least 13mm of thickness remaining. The size 35 patella fit the best. This was oriented and then clamped into position. The lugs were drilled. The trial components were removed. The final components were opened on the back table. The periosteal and capsular tissues, especially posteriorly, around the knee were then systematically injected with a periarticular cocktail consisting of 246mg of Ropivacaine, 0.5mg of Epinephrine, 0.08mg of Clonidine, and 30mg of Ketorolac, diluted to 100cc. On the back table, with the implants opened, the cement was mixed. One batch of high viscosity cement was prepared with vacuum assistance. After the cement was ready a small amount was placed on the cut surface of the patella and the patellar button was clamped into position and held. While the cement was hardening, the cementless knee components were placed. Starting with the tibial component, the tibia was subluxed anteriorly and the lug holes of the component were lined up. The tibia was then impacted with an impactor and mallet until the tibial component was in contact with the tibia. The final polyethylene component was inserted. Then, the femoral component was inserted. The lug holes were aligned and the component was impacted into position. The knee was irrigated with Surgiphor Betadine solution. This was allowed to sit in the knee for 3 minutes and then it was irrigated out with saline. After the cement had finally cured, approximately 15min, the clamp was removed from the patella and the knee was taken through range of motion. The patella was tracking with a no-thumbs technique. The capsule was then reapproximated with a No. 1 Vicryl at multiple locations. The capsule was finally closed with a No. 2 Stratafix, barbed suture. The second dosing of 1g TXA was started. Deep tissues were then reapproximated with 0 Vicryl and 2-0 Vicryl. The skin was closed with a running 3-0 Monocryl in a subcuticular fashion. This was reinforced with skin glue. A Mepilex silver dressing was applied along with a [id number] ELEANOR wrap. A CryoCuff was applied. Aurora was transferred to the hospital bed without difficulty an suffering no apparent complication. Aurora has a good prognosis. Physical therapy will start today and without restrictions, weight-bearing as tolerated. Her home dose of apixaban 2.5 mg twice daily will be used for DVT prophylaxis.
[2023-12-13] MEDS: Normal Saline 10 ML VIAL IJ (13:00)
[2023-12-13] MEDS: HYDROmorphone 2 MG/ML SYR IVP (13:00)
[2023-12-13] MEDS: LORazepam 2 MG/ML VIAL 0.5 MG IVP (13:10)
[2023-12-13] MEDS: oxyCODONE 5 MG TAB PO (14:16)
--- NOTE | 2023-12-13 14:23 | W.ANESPOSTOP ---
Postoperative Evaluation Date, Time and Location Date Performed: 12/13/23 Time Performed: 14:23 Patient Location: Day Surgery Unit Vital Signs Most Recent Imported Vital Signs: Most Recent Vital Signs Temp Pulse Resp BP Pulse Ox 36.2 C L 88 16 143/84 H 99 12/13/23 14:20 12/13/23 14:20 12/13/23 14:20 12/13/23 14:20 12/13/23 14:20 Pain Score Most Recent Pain Score: Most Recent Pain Score Pain Level 3 12/13/23 13:42 Assessment Mental Status: Awake (Alert & Oriented to Patient Baseline) Airway and Respiratory Function: Patent airway with normal (patient baseline) respiratory exam Cardiovascular Function: Hemodynamically Stable Hydration Status: Adequately Hydrated Nausea & Vomiting: No Nausea or Vomiting Pain: Pain is Moderate or Severe Postoperative Pain Management: Pain being addressed with medication Peripheral Nerve Block: Regional nerve block not resolved at time of post operative discharge Postoperative Comments:: Pain is just above the knee, not in knee joint.
--- NOTE | 2023-12-13 14:55 | IN_ITS ---
PT Notes Visit Reasons: Left knee DJD Physical Therapy Day Surgery Initial Evaluation Date: 12/14/2023 Referring Doctor: VARSHA Bardales PT Orders: PT CONSULT: S/P Ortho Surgery Precautions: WBAT on the left LE with AD. Patient Profile/Admitting Diagnosis: Josefina is a 48-year-old female with degenerative joint disease of the left knee and status post left total knee arthroplasty on postoperative day 0. PMHX: Medical History History of postoperative nausea and vomiting History of blood transfusion 2018-pt stated she was on a blood thinner from previous DVT and hemhorraged and recieved two transfusionsHx of psoriasis Open wound pt. see's vascular in regards to a wound that has been open from a punch biopsy for 2 years. Arthritis Hx of pilonidal cyst Ulcerative colitis Hx of deep venous thrombosis in 2018 2x 6 months apar tHypothyroidism Surgical History (Updated 12/01/23 @ 14:03 by VARSHA Stewart) Trimalleolar fracture of right ankle (11/23/20) S/P ORIF: 11/27/2020 Hx of section Hx of hysterectomy Social History/Home Situation: Independent with all aspects of ADLs prior to surgery Equipment Owned/DME: None Subjective: Unsure f how much she is able to do for the assessment. Verbalized that although she was not using any assistive device prior to surgery, she has not had increasing difficulty to move about and walk. Objective: General Observation: Resting in bed. Samuel wraps to left LE. Cryoc present in room throughout session. Uff to left knee. Mental Status: A and O x 4 Pain: 3-4/10 in the L knee ROM: Left Lower Extremity: Hip flexion WFL. Hip abduction WFL. Knee flexion 0-90 degrees ACTIVELY. Ankle dorsiflexion WFL. Ankle plantarflexion WFL. Strength: Left Lower Extremity:Hip flexors 5/5. Hip abductors 5/5. Knee flexors 5/5. Knee extensors 5/5. Ankle dorsiflexors 5/5. Ankle plantarflexors 5/5. Sensation: Intact tested pain and light pressure in bilateral lower extremities Bed Mobility/Transfers: Minimal cueing provided for use of B hands as needed for support, movement sequence, AD management, and posture to reduce fall risk and minimize pain report Supine to sit standby assist with HOB at 30 degrees Sit to stand contact-guard assist with FWW Stand to sit stand by assist Bed to chair stand by assist Gait: Facilitated safe and correct performance of level surface ambulation covering a distance of 150 feet using front wheeled walker with standby assist provided with patient demonstrating step to gait pattern requiring minimal verbal cueing for appropriate weight distribution technique using AD, limb advancement, posture, and overall safety. Balance: Static Sitting: Normal Dynamic Sitting: Normal Static Standing: Fair Dynamic Standing: Fair Special Tests: Mobility Limitations Standardized Measure [facility] AM-PAC 6 clicks Basic Mobility Inpatient Short Form: Raw Score: 22 CMS Score: 21% deficit Informed Consent/Education: Patient instructed in purpose of PT consult. Packet containing TKA exercise protocol has been given to patient. Education and training on initial set of exercises that can be done at home have been completed with patient. Trained pa tient with correct performance of exercises below to maximize motor control, joint flexibility, soft tissue extensibility of the L knee musculature: Access Code: [email or web address] URL: [email or web address] Date: 12/13/2023 Prepared by: Marianna Batres Exercises - Supine Quad Set - 1 x daily - 7 x weekly - 1 sets - 10 reps - 5 hold - Supine Heel Slide - 1 x daily - 7 x weekly - 1 sets - 10 reps - 5 hold - Supine Ankle Pumps - 1 x daily - 7 x weekly - 1 sets - 10 reps - 5 hold - Small Range Straight Leg Raise - 1 x daily - 7 x weekly - 1 sets - 10 reps - 5 hold - Seated March - 1 x daily - 7 x weekly - 1 sets - 10 reps - 5 hold Assessment: Patient requires the use of a front wheeled walker for mobility ADL performance to maximize independence and reduce fall risk. Patient presents with clinical signs and symptoms consistent with current/admitting diagnoses that have resulted to mobility limitations, gait instability, generalized weakness, and impairment of motor control as demonstrated by the following impairment level findings: 1. Decreased strength to left knee major muscle groups 2. Impaired standing balance 3. Limitation of joint range of motion in left knee Impairments are contributing to the following functional limitations: 1. Inability to safely ambulate without assistive device 2. Increase completion time for mobility ADL performance 3. Increased fall risk Patient is assessed as a 56674 moderate complexity based on the following: History: 48-year-old female with impairment level findings, functional limitations, and past medical history as indicated above Examination: Demonstrable impairment in strength, balance, and mobility level with underlying impairments and functional limitations as documented above Presentation: Evolving Decision Makin moderate complexity Goals: N/A. PT evaluation and 1-2 treatment sessions only for functional mobility training using recommended AD and for HEP instruction. Plan of Care/Treatment Plan: N/A. PT evaluation and 1-2 treatment session only for functional mobility training using recommended AD and for HEP instruction. DISCHARGE RECOMMENDATIONS: Home when medically cleared by orthopedic surgeon. Recommend outpatient PT services in order to optimize functional mobility outcomes and facilitate return to independent community ambulation without an assistive device. TREATMENT CODE/TIME: 48597 x 20 minutes for 1 unit, 02877 x 25 minutes for 2 units (14:55?15:35). Thank you for the opportunity to participate in the care of this patient. Please sign an return this page within 30 days if you agree with the above POC. Thank you! Physician Signature Date [facility] Marianna Batres PT, DPT, CLT [facility] [place], [place]
--- NOTE | 2023-12-13 14:55 | PT.INTREAT ---
PT Notes Visit Reasons: Left knee DJD
--- NOTE | 2023-12-13 14:55 | PTTR_ITS ---
PT Notes Visit Reasons: Left knee DJD
== END 2023-12-13 16:05 | disposition home or self-care (01) ==
LOC: SUR 08:52
PROVIDERS: PCP Family Medicine; Visit Provider Student in an Organized Health Care Education/Training Program
PROC: (CPT 27447; principal; 2023-12-13 11:00)
DX: M17.12 Unilateral primary osteoarthritis, left knee (principal); E03.9 Hypothyroidism, unspecified; Z79.899 Other long term (current) drug therapy
CPT/HCPCS: 27447; 76942; 97162; 97530; C1776; J0665; J0690; J1100; J1170; J1171; J2001; J2060; J2250; J2371; J2401; J2405; J2469; J2704

== ENCOUNTER 2023-12-26 11:38 | Outpatient (CLI) | payer OTHER, SELFPAY ==
--- NOTE | 2023-12-26 10:30 | DI.RAD_ITS ---
Exam(s) XR KNEE LT 1V XR STANDING ALIGNMENT EXAM: XR STANDING ALIGNMENT and XR knee LT 1 V CLINICAL HISTORY: 1ST POST OP S/P L TKA. TECHNIQUE: 2D digital imaging was performed. Five images were obtained. COMPARISON: CR XR KNEE LT 1V from 12/01/2023 CR XR STANDING ALIGNMENT from 12/01/2023 FINDINGS: BONES: The hips are well maintained. The patient is now status post left total knee replacement. Th e orthopedic hardware appears in good position. No suspicious lucencies are seen around the orthoped ic hardware. Moderate arthrosis of the right knee is seen characterized by joint space narrowing and osteophytes. The findings are most marked in the medial femoral tibial joint. The ankles are well maintained.There is no significant leg length discrepancy. There is again seen a sideplate and screw s transfixing an old healed distal right fibular fracture. There is an orthopedic screw seen the med ial malleolus of the right ankle. SOFT TISSUE: Normal. IMPRESSION: 1. Left total knee replacement. 2. Moderate arthrosis of the right knee. DATA REPOSITORY: RADIATION DOSE DELIVERED:
== END 2023-12-26 11:39 | disposition home or self-care (01) ==
LOC: DIORS 11:38
PROVIDERS: PCP Family Medicine; Referring Provider Family Medicine; Visit Provider Physician Assistant
DX: Z96.652 Presence of left artificial knee joint (principal); Z47.1 Aftercare following joint replacement surgery
CPT/HCPCS: 73560; 77073

== ENCOUNTER 2024-12-13 15:00 | Outpatient (CLI) | payer OTHER, SELFPAY ==
--- NOTE | 2024-12-13 15:00 | DI.RAD_ITS ---
Exam(s) XR KNEE LT 2V AP,LAT EXAM: XR KNEE LT 2V AP,LAT CLINICAL HISTORY: ANNUAL F/U L TKA. TECHNIQUE: 2D digital imaging was performed. Three views. COMPARISON: CR XR KNEE LT 1V from 12/26/2023 CR XR STANDING ALIGNMENT from 12/26/2023 FINDINGS: BONES: No acute fracture is present. No bony destructive lesion is seen. JOINTS: The knee prosthesis is normally aligned. No joint effusion is seen. SOFT TISSUE: Mild diffuse soft tissue edema. IMPRESSION: Unremarkable left knee prosthesis. DATA REPOSITORY: RADIATION DOSE DELIVERED:
== END 2024-12-13 15:01 | disposition home or self-care (01) ==
LOC: DIORS 12-14 10:48
PROVIDERS: PCP Family Medicine; Visit Provider Physician Assistant
DX: Z96.652 Presence of left artificial knee joint (principal); R60.9 Edema, unspecified
CPT/HCPCS: 73560